=== PATIENT | female | born 1995 | race Caucasian/White ===

== ENCOUNTER 2018-11-12 19:30 | Emergency (ER) | payer OTHER, SELFPAY ==
[2018-11-12 19:31] VITALS: BP 109/60; PULSE 68; RESP 14; TEMP 36.4; O2SAT 98
--- NOTE | 2018-11-12 20:00 | ED.BACK ---
HPI - Back Pain/Injury <Elsa Patiño PA-C - Last Filed: 11/12/18 22:05> General Chief Complaint: Back Pain/Injury Stated Complaint: MID BACK PAIN Time Seen by Provider: 11/12/18 19:47 Source: patient Mode of arrival: ambulatory Limitations: no limitations History of Present Illness HPI Narrative: this 23-year-old female comes in due to approximately 3 day history of low thoracic and lumbar pain. 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 She thinks that this came on somewhat gradually. She states that pain can radiate into both legs, down the posterior legs and into the feet especially with certain movements such as twisting or lifting as well as with sitting in the car. Better being up and walking a little bit. She states that the pain has a tingling quality, but her legs are not numb or weak. She denies any groin numbness. She denies any bowel or bladder changes or any other new complaints on systems review. she states she is taking naproxen twice daily and using heat which helps somewhat. She states she has occasional back strain but this is more severe Related Data Previous Rx's Medication Instructions Recorded cephalexin 500 mg PO Q6H #28 cap 12/03/17 cyclobenzaprine 10 mg PO Q8H #15 tab 11/12/18 Allergies Allergy/AdvReac Type Severity Reaction Status Date / Time No Known Allergies Allergy Uncoded 12/27/17 12:51 Review of Systems <Elsa Patiño PA-C - Last Filed: 11/12/18 22:05> Review of Systems ROS Unobtainable: All systems reviewed & are unremarkable except as noted in HPI and below PFSH <Elsa Patiño PA-C - Last Filed: 11/12/18 22:05> Medical History Healthy female (Chronic) No pertinent family history (Chronic) Surgical History No pertinent past surgical history (Chronic) Social History Smoking Status: Never smoker Social History Smoking Status: Never smoker Exam <Elsa Patiño PA-C - Last Filed: 11/12/18 22:05> Narrative Exam Narrative: GENERAL APPEARANCE: Patient sitting comfortably, in no distress. PULMONARY: Lungs clear to auscultation bilaterally CV: Regular rhythm regular without murmur, normal S1 and S2, no S3 or S4 MUSCULOSKELETAL: No point tenderness over the thoracic or lumbar spine. mild tenderness with moving from trunk flexion to extension but able to do. Normal sit:stand and gait. Lower extremity strength 5/5 bilateral hip flexors, knee extensors, foot plantar flexion. Negative modified straight leg raise NEUROLOGIC: Bilateral patellar and Achilles DTRs 2+. lower extremity sensation grossly intact EXTREMITIES: No edema or cyanosis, no calf tenderness DERMATOLOGIC: No exanthem Initial Vital Signs Initial Vital Signs: Vital Signs Temperature 97.5 F L 11/12/18 19:31 Pulse Rate 68 11/12/18 19:31 Respiratory Rate 14 11/12/18 19:31 Blood Pressure 109/60 11/12/18 19:31 Pulse Oximetry 98 11/12/18 19:31 <DO Benji Pino Last Filed: 11/13/18 05:11> Initial Vital Signs Initial Vital Signs: Vital Signs Temperature 97.5 F L 11/12/18 19:31 Pulse Rate 68 11/12/18 19:31 Respiratory Rate 14 11/12/18 19:31 Blood Pressure 109/60 11/12/18 19:31 Pulse Oximetry 98 11/12/18 19:31 Course <JOSE Mills Last Filed: 11/12/18 22:05> Vital Signs - 8 hr 11/12/18 19:31 11/12/18 20:43 Temperature 97.5 F L Pulse Rate 68 64 Respiratory Rate 14 14 Blood Pressure 109/60 108/65 Pulse Oximetry 98 99 <DO Benji Pino Last Filed: 11/13/18 05:11> Vital Signs - 8 hr 11/12/18 19:31 11/12/18 20:43 Temperature 97.5 F L Pulse Rate 68 64 Respiratory Rate 14 14 Blood Pressure 109/60 108/65 Pulse Oximetry 98 99 MDM - Back Pain/Injury <JOSE Mills Last Filed: 11/12/18 22:05> Lab Data Point of Care Testing Test Results Negative Urine Dip Bedside Urine Glucose Negative Bedside Urine Bilirubin - Negative Bedside Urine Ketone - Negative Urine Specific [place] 1.020 Bedside Urine Occult Blood - Negative Bedside Urine pH 6.5 Bedside Urine Urobilinogen - Negative Bedside Urine Nitrite - Negative Bedside Urine Leukocytes - Negative Esterase <Hesham Quinteros DO - Last Filed: 11/13/18 05:11> Lab Data Point of Care Testing Test Results Negative Urine Dip Bedside Urine Glucose Negative Bedside Urine Bilirubin - Negative Bedside Urine Ketone - Negative Urine Specific [place] 1.020 Bedside Urine Occult Blood - Negative Bedside Urine pH 6.5 Bedside Urine Urobilinogen - Negative Bedside Urine Nitrite - Negative Bedside Urine Leukocytes - Negative Esterase Discharge Plan Departure Patient Disposition: Home Clinical Impression: Strain of lumbar region Qualifiers: Encounter type: initial encounter Qualified Code(s): S39.012A - Strain of muscle, fascia and tendon of lower back, initial encounter Sciatica Qualifiers: Laterality: bilateral Qualified Code(s): M54.31 - Sciatica, right side Discharge Date/Time: 11/12/18 20:43 Interventions: ED Discharge Assessment Last Done: 11/12/18 20:43 Instructions: DI for Back Pain With Sciatica Activity Restrictions/Additional Instructions: please increase your naproxen to 2 tablets twice daily. You can add Tylenol as well as the muscle relaxant that was prescribed for you (cyclobenzaprine ) as needed. Remember that cyclobenzaprine can make you sleepy and not to drive. Avoid sitting for long periods, lifting and twisting. Gentle walking is okay. Take a few days off of work so that you can avoid exacerbating activities. Please call your insurance 1st thing in the morning and request a referral to a primary care provider who can see you for follow-up. You may need further testing and treatment if you are not getting better. You should return to the ED as we talked about if you have any acutely worsening symptoms such as more severe pain, weakness in your extremities, or bowel or bladder changes Prescriptions: New cyclobenzaprine 10 mg tablet 10 mg PO Q8H Qty: 15 RF: 0 No Action cephalexin 500 MG capsule 500 mg PO Q6H Qty: 28 RF: 0 <Hesham Quinteros DO - Last Filed: 11/13/18 05:11> Cosign ED Attending Fide Attestation: I was immediately available in the department for consultation. Documentation has been reviewed. I agree with assessment and plan.
[2018-11-12 20:43] VITALS: BP 108/65; PULSE 64; RESP 14; O2SAT 99
== END 2018-11-12 20:43 | disposition home or self-care (01) ==
PROVIDERS: Emergency Provider Internal Medicine
DX: S39.012A Strain of muscle, fascia and tendon of lower back, initial encounter (principal); M54.31 Sciatica, right side
CPT/HCPCS: 81003; 81025; 99282; 99283

== ENCOUNTER 2019-03-09 08:49 | Emergency (ER) | payer OTHER, SELFPAY ==
[2019-03-09 08:55] VITALS: BP 124/81; PULSE 60; RESP 14; TEMP 36.7; O2SAT 99; BMI 24.7
--- NOTE | 2019-03-09 09:23 | DI.US.S_ITS ---
PROCEDURE: US PELVIC COMPLETE INDICATIONS: LEFT LOWER QUADRANT PAIN TECHNIQUE: Real-time scanning was performed of the pelvic organs, with image documentation. Additional endovaginal scanning was necessary due to incomplete visualization of the adnexal and endometrial structures by transabdominal scanning. COMPARISON: None. FINDINGS: Transabdominal scanning: Limited scanning through the kidneys shows no hydronephrosis. No pathologic free abdominal or pelvic fluid. Endovaginal scanning: Uterus: Uterus is normal in size at 8.5 x 4.3 x 5.1 cm. The endometrium measures 13 mm in combined thickness. Ovaries: Complex nonvascular cyst within the left ovary measuring 48 mm. IMPRESSION: 1. Complex left ovarian cyst. Followup ultrasound in 5 weeks is recommended to ensure resolution, and to exclude underlying malignancy. Dictated by: Puma Chaney M.D. on 03/09/2019 at 9:29 Approved by: Puma Chaney M.D. on 03/09/2019 at 9:30
[2019-03-09] MEDS: KETOROLAC 60 MG/2 ML VIAL 30 MG IM (09:27)
--- NOTE | 2019-03-09 09:33 | ED_ITS ---
HPI - Female Genitourinary General Chief complaint: Urogenital-Female Stated complaint: LOWER LEFT ABD PAIN Time Seen by Provider: 03/09/19 08:54 Source: patient Mode of arrival: ambulatory Limitations: no limitations History of Present Illness HPI Narrative: Patient is a 24-year-old female left lower quadrant pain. She has a history of ovarian cysts she is unsure this might be 1. She had quite a bit a bad cramping and pain last night. She took Tylenol last evening 2 500 mg tablets however no relief. She denies any fever nausea. She has no vaginal discharge no vaginal bleeding. MD Complaint: pelvic pain Quality: Aching and Cramping Duration: constant Related Data Previous Rx's Medication Instructions Recorded cephalexin 500 mg PO Q6H #28 cap 12/03/17 cyclobenzaprine 10 mg PO Q8H #15 tab 11/12/18 Allergies Allergy/AdvReac Type Severity Reaction Status Date / Time No Known Drug Allergies Allergy Verified 03/09/19 08:59 Review of Systems Review of Systems GENERAL: Denies chills, fatigue, malaise, fever, sweats, travel HEENT: Denies sinus pain, ear pain, sore throat, difficulty swallowing, neck pain RESPIRATORY: Denies dyspnea, cough, wheezing, hemoptysis, sputum. CARDIOVASCULAR: Denies chest pain, palpitations, orthopnea, edema GASTROINTESTINAL: Denies nausea, vomiting, abdominal pain, diarrhea, constipation, melena. : See HPI MUSCULOSKELETAL: Denies weakness, joint pain, or bony pain SKIN: No rash, no erythema, no pruritus NEUROLOGIC: Denies weakness, dizziness, headache, numbness, change in speech, confusion PSYCHIATRIC: No concerning psychosocial issues. 12 point review of systems is negative except for those stated above and HPI PFSH Medical History Healthy female (Chronic) No pertinent family history (Chronic) Surgical History No pertinent past surgical history (Chronic) Social History Smoking Status: Never smoker Social History Smoking Status: Never smoker Exam Initial Vital Signs Initial Vital Signs: Vital Signs Temperature 98.1 F 06/22/19 08:55 Pulse Rate 60 03/09/19 08:55 Respiratory Rate 14 03/09/19 08:55 Blood Pressure 124/81 03/09/19 08:55 Pulse Oximetry 99 03/09/19 08:55 GENERAL: Well-appearing, well-nourished and in no acute distress. HEENT: Head atraumatic,EOMI, pupils reactive, face symmetric, moist mucous membranes CARDIOVASCULAR: Regular rate and rhythm without murmurs, rubs or gallops. RESPIRATORY: Breath sounds equal bilaterally, no wheezes rales or rhonchi. ABDOMEN: Soft, nontender left lower quadrant no guarding no rebound no right upper quadrant pain some minimal right lower quadrant pain : No CVA tenderness EXTREMITIES: Normal range of motion, no clubbing or edema. Neurovascularly intact NEUROLOGICAL: Alert and oriented x4.Normal gait and speech. Cranial nerves II through XII grossly intact. SKIN: Warm, dry, no laceration, no petechiae, no rashes or lesions. Course Orders Ordered: ED Orders 03/09/19 09:23 US pelvic complete Stat 03/09/19 09:30 Complete Blood Count AUTO DIFF Stat Comprehensive Metabolic Panel Stat Lipase Stat Discontinued Medications Ketorolac Tromethamine (Toradol) 30 mg IM NOW ONE Stop: 03/09/19 09:24 Last Admin: 03/09/19 09:27 Dose: 30 mg Vital Signs - 8 hr 03/09/19 08:55 Temperature 98.1 F Pulse Rate 60 Respiratory Rate 14 Blood Pressure 124/81 Pulse Oximetry 99 MDM - Female Genitourinary Lab Data Attestation: I reviewed the patient's lab results. Result diagrams: 03/09/19 09:30 03/09/19 09:30 Lab Results 03/09/19 03/09/19 Range/Units 09:30 09:30 WBC 6.4 (4.5-11.0) X10^3/uL RBC 4.63 (4.0-5.2) X10^6/uL Hgb 13.5 (12.0-16.0) g/dL Hct 40.6 (36-46) % MCV 87.6 (80-100) fL MCH 29.2 (26-34) PG MCHC 33.4 (30-36) % RDW 13.2 (11.6-14.8) % Plt Count 253 (150-400) X10^3/uL Neut % (Auto) 68.8 (50-75) % Lymph % (Auto) 24.3 L (25-40) % [place] % (Auto) 6.2 (3-14) % Eos % (Auto) 0.4 L (2-4) % Baso % (Auto) 0.3 (0-2) % Neut # (Auto) 4400 (4067-7244) /uL Lymph # (Auto) 1600 (8626-5853) /uL [place] # (Auto) 400 (0-900) /uL Eos # (Auto) 0 (0-450) /uL Baso # (Auto) 0 (0-100) /uL Sodium 140 (137-145) mmol/L Potassium 4.2 (3.4-5.1) mmol/L Chloride 104 (98-107) mmol/L Carbon Dioxide 26 (22-32) mmol/L BUN 17 (7-17) mg/dL Creatinine 0.70 (0.52-1.04) mg/dL Estimated GFR > 60.0 (>60) mL/min BUN/Creatinine Ratio 24.3 H (6-22) Glucose 90 (70-100) mg/dL Calcium 10.0 (8.4-10.2) mg/dL Total Bilirubin 0.6 (0.2-1.3) mg/dL AST 32 (14-36) IU/L ALT 28 (9-52) IU/L Alkaline Phosphatase 45 (38-126) U/L Total Protein 7.4 (6.3-8.2) g/dL Albumin 4.6 (3.5-5.0) g/dL Globulin 2.8 (1.7-4.1) g/dL Albumin/Globulin Ratio 1.6 (1.0-2.8) Lipase 83 (23-300) U/L Point of Care Testing Test Results Negative Urine Dip Bedside Urine Glucose Negative Bedside Urine Bilirubin - Negative Bedside Urine Ketone + 15 Urine Specific [place] 1.015 Bedside Urine Occult Blood - Negative Bedside Urine pH 6.0 Bedside Urine Protein - Negative Bedside Urine Urobilinogen - Negative Bedside Urine Nitrite - Negative Bedside Urine Leukocytes - Negative Esterase Imaging Data pelvic ultrasound: Radiologist's impression: PROCEDURE: US PELVIC COMPLETE INDICATIONS: LEFT LOWER QUADRANT PAIN TECHNIQUE: Real-time scanning was performed of the pelvic organs, with image documentation. Additional endovaginal scanning was necessary due to incomplete visualization of the adnexal and endometrial structures by transabdominal scanning. COMPARISON: None. FINDINGS: Transabdominal scanning: Limited scanning through the kidneys shows no hydronephrosis. No pathologic free abdominal or pelvic fluid. Endovaginal scanning: Uterus: Uterus is normal in size at 8.5 x 4.3 x 5.1 cm. The endometrium measures 13 mm in combined thickness. Ovaries: Complex nonvascular cyst within the left ovary measuring 48 mm. IMPRESSION: 1. Complex left ovarian cyst. Followup ultrasound in 5 weeks is recommended to ensure resolution, and to exclude underlying malignancy. Dictated by: Puma Chaney M.D. on 03/09/2019 at 9:29 Discharge Plan Departure Patient Disposition: Home Clinical Impression: Ovarian cyst Qualifiers: Laterality: left Qualified Code(s): N83.202 - Unspecified ovarian cyst, left side Instructions: Ovarian Cyst Activity Restrictions/Additional Instructions: *You have been diagnosed with ovarian cyst *What to do: You should have repeat ultrasound in 5-6 weeks to show resolution of cyst. This should resolve on its own. Recommend you continue warm compr esses *Continue to take medications as directed -ibuprofen 800 mg every 8 hours if needed for pain with food Tylenol 650 mg every 4-6 hours if needed for pain *Follow up with your primary care provider in 2-3 days *Return to ER if you should have increasing pain significant vaginal bleeding or any new, worsening or concerning symptoms Prescriptions: No Action cephalexin 500 MG capsule 500 mg PO Q6H Qty: 28 RF: 0 cyclobenzaprine 10 mg tablet 10 mg PO Q8H Qty: 15 RF: 0 Referrals: Cara Arias PA-C [Non-Staff] -
[2019-03-09 09:38] LABS: Add Manual Diff / Slide Review NO; Basophils Absolute Auto 0 /uL (0-100); Basophils Percent Auto 0.3 % (0-2); Eosinophils Absolute Auto 0 /uL (0-450); Eosinophils Percent Auto 0.4 % (2-4); Hematocrit 40.6 % (36-46); Hemoglobin 13.5 g/dL (12.0-16.0); Lymphocytes Absolute Auto 1600 /uL (1100-4500); Lymphocytes Percent Auto 24.3 % (25-40); Mean Corpuscular HGB Conc 33.4 % (30-36); Mean Corpuscular Hemoglobin 29.2 PG (26-34); Mean Corpuscular Volume 87.6 fL (80-100); Monocytes Absolute Auto 400 /uL (0-900); Monocytes Percent Auto 6.2 % (3-14); Neutrophils Absolute Auto 4400 /uL (1500-7000); Neutrophils Percent Auto 68.8 % (50-75); Platelet Count 253 X10^3/uL (150-400); Red Blood Cell Count 4.63 X10^6/uL (4.0-5.2); Red Cell Distribution Width 13.2 % (11.6-14.8); White Blood Cell Count 6.4 X10^3/uL (4.5-11.0)
[2019-03-09 09:55] LABS: Alanine Aminotransferase 28 IU/L (9-52); Albumin 4.6 g/dL (3.5-5.0); Albumin Globulin Ratio 1.6 (1.0-2.8); Alkaline Phosphatase 45 U/L (38-126); Aspartate Aminotransferase 32 IU/L (14-36); BUN Creatinine Ratio 24.3 (6-22); Bilirubin Total 0.6 mg/dL (0.2-1.3); Blood Urea Nitrogen 17 mg/dL (7-17); Carbon Dioxide 26 mmol/L (22-32); Chloride 104 mmol/L (98-107); Estimated Glomerular Filt Rate > 60.0 mL/min (>60); Globulin 2.8 g/dL (1.7-4.1); Glucose 90 mg/dL (70-100); HEMOLYSIS 18 (0-50); Lipase 83 U/L (23-300); Potassium 4.2 mmol/L (3.4-5.1); Sodium 140 mmol/L (137-145); Total Protein 7.4 g/dL (6.3-8.2)
[2019-03-09 10:47] VITALS: BP 117/70; PULSE 56; O2SAT 98
== END 2019-03-09 10:48 | disposition home or self-care (01) ==
PROVIDERS: Emergency Provider Emergency Medicine
DX: N83.202 Unspecified ovarian cyst, left side (principal)
CPT/HCPCS: 36415; 76830; 76856; 80053; 81003; 81025; 83690; 85025; 96372; 99283; 99284; J1885

== ENCOUNTER 2019-07-04 19:21 | Emergency (ER) | payer OTHER, SELFPAY ==
[2019-07-04 19:29] VITALS: BP 108/53; PULSE 70; RESP 18; TEMP 36.6; O2SAT 98
--- NOTE | 2019-07-04 19:32 | DI.RAD.S_ITS ---
PROCEDURE: XR WRIST RT MIN 3V INDICATIONS: pain after twisting it. TECHNIQUE: 4 views of the wrist were acquired. COMPARISON: None. FINDINGS: Bones: No fractures or dislocations. No suspicious bony lesions. Scaphoid view: The scaphoid is intact. Soft tissues: No suspicious soft tissue calcifications. IMPRESSION: No acute radiographic findings. If pain persists, repeat study in 5-7 days is recommended to exclude occult fracture. Dictated by: Elina Rondon M.D. on 07/04/2019 at 20:28 Approved by: Elina Rondon M.D. on 07/04/2019 at 20:29
[2019-07-04] MEDS: IBUPROFEN 400 MG TABLET 800 MG PO (19:38)
[2019-07-04 19:40] VITALS: PULSE 78
--- NOTE | 2019-07-04 19:54 | ED.UPPEXIN ---
HPI - Extremity Injury (Upper) <Elas Patiño PA-C - Last Filed: 07/04/19 21:08> General Chief Complaint: Extremity Injury, Upper Stated Complaint: right wrist injury at work on the 15th Time Seen by Provider: 07/04/19 19:25 Mode of arrival: Ambulatory Limitations: no limitations History of Present Illness HPI narrative: This 24-year-old female comes in this evening due to right wrist injury at work 2 days ago. She is right-handed. She went to the clinic her employer is contracted with for L&I yesterday, told to return this morning and then told could not be seen there, so comes to ED. 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 She felt a pop and had pain right away. She has had persistent pain with movement since then. She has not taken any medications, but her mom gave her a wrist splint yesterday and she wore this last night, seems to help. She denies any pain in the hand, elbow or other areas. She denies any weakness or paresthesia and states it is pain that keeps her from moving. She denies any possibility of . Denies any other complaints or injuries on systems review Related Data Previous Rx's Medication Instructions Recorded cephalexin 500 mg PO Q6H #28 cap 12/03/17 cyclobenzaprine 10 mg PO Q8H #15 tab 11/12/18 Allergies Allergy/AdvReac Type Severity Reaction Status Date / Time No Known Drug Allergies Allergy Verified 03/09/19 08:59 Review of Systems <Elsa Patiño PA-C - Last Filed: 07/04/19 21:08> Review of Systems ROS Unobtainable: All systems reviewed & are unremarkable except as noted in HPI and below Patient History <Elsa Patiño PA-C - Last Filed: 07/04/19 21:08> Medical History Healthy female (Chronic) No pertinent family history (Chronic) Surgical History No pertinent past surgical history (Chronic) Social History Smoking Status: Never smoker Social History Smoking Status: Never smoker alcohol intake frequency: holidays/special occasions only Substance Use Type: marijuana Exam <Elsa Patiño PA-C - Last Filed: 07/04/19 21:08> Narrative Exam Narrative: GENERAL APPEARANCE: Patient sitting comfortably, in no distress. LUNGS: Clear to auscultation bilaterally. HEART: Rate and rhythm regular without murmur, normal S1 and S2, no S3 or S4. MUSCULOSKELETAL: Right wrist mild effusion. Does not extend to the hand or proximally. Tender over the mid to lateral wrist on the posterior surface. No tenderness over the forearm, elbow, metacarpals or fingers. Full range of motion of the fingers with wrist neutral. Limited range of motion of the wrist, especially flexion and deviations secondary to tenderness NEUROVASCULAR: Right hand is warm and pink, pulses are intact, sensation grossly intact Initial Vital Signs Initial Vital Signs: Vital Signs Temperature 98 F 07/04/19 19:29 Pulse Rate 70 07/04/19 19:29 Respiratory Rate 18 07/04/19 19:29 Blood Pressure 108/53 L 07/04/19 19:29 Pulse Oximetry 98 07/04/19 19:29 <Hesham Quinteros DO - Last Filed: 07/04/19 23:27> Initial Vital Signs Initial Vital Signs: Vital Signs Temperature 98 F 07/04/19 19:29 Pulse Rate 70 07/04/19 19:29 Respiratory Rate 18 07/04/19 19:29 Blood Pressure 108/53 L 07/04/19 19:29 Pulse Oximetry 98 07/04/19 19:29 Course <Elsa Patiño PA-C - Last Filed: 07/04/19 21:08> Course Additional Information: Patient will call an L&I for referral to outside provider if employer not able to help with this. Form 1047M completed in addition to L & I standard paperwork prior to patient departure. Orders Ordered: ED Orders 07/04/19 19:32 XR wrist RT min 3V Stat Discontinued Medications Ibuprofen (Advil) 800 mg PO NOW ONE Stop: 07/04/19 19:37 Last Admin: 07/04/19 19:38 Dose: 800 mg Documented by: PHILLIP Vital Signs Vital signs: Vital Signs - 8 hr 07/04/19 19:29 07/04/19 19:40 07/04/19 20:52 Temperature 98 F Pulse Rate 70 50 L Pulse Rate [Right Radial] 78 Respiratory Rate 18 15 Blood Pressure 108/53 L 104/63 Pulse Oximetry 98 99 <Hesham Quinteros, DO - Last Filed: 07/04/19 23:27> Orders Ordered: ED Orders 07/04/19 19:32 XR wrist RT min 3V Stat Discontinued Medications Ibuprofen (Advil) 800 mg PO NOW ONE Stop: 07/04/19 19:37 Last Admin: 07/04/19 19:38 Dose: 800 mg Documented by: PHILLIP Vital Signs Vital signs: Vital Signs - 8 hr 07/04/19 19:29 07/04/19 19:40 07/04/19 20:52 Temperature 98 F Pulse Rate 70 50 L Pulse Rate [Right Radial] 78 Respiratory Rate 18 15 Blood Pressure 108/53 L 104/63 Pulse Oximetry 98 99 Discharge Plan Departure Patient Disposition: Home Clinical Impression: Sprain and strain of wrist Discharge Date/Time: 07/04/19 20:52 Instructions: DI for Wrist Sprain Activity Restrictions/Additional Instructions: There was no broken bone found on your x-ray, and I believe that your pain is due to tendon strain and muscle sprain of the wrist. Please continue wearing or wrist splint /. Take 600 mg ibuprofen every 6-8 hours to help with pain and inflammation. Please set up follow-up with an L&I provider to recheck next week as repeat x-ray may be needed if you are not starting to get better. For now, you need to work on light duty according to the restrictions that we talked about. I have given you a copy of the form for this if needed for your employer. You can determine whether you can get back to regular duty at your follow-up, or whether you need further treatment such physical therapy or referral. Please return if you have any acutely worsening symptoms in the interim Prescriptions: No Action cephalexin 500 MG capsule 500 mg PO Q6H Qty: 28 RF: 0 cyclobenzaprine 10 mg tablet 10 mg PO Q8H Qty: 15 RF: 0 Referrals: Cara Arias PA-C [Non-Staff] -
[2019-07-04 20:52] VITALS: BP 104/63; PULSE 50; RESP 15; O2SAT 99
== END 2019-07-04 20:52 | disposition home or self-care (01) ==
PROVIDERS: Emergency Provider Internal Medicine
DX: S63.501A Unspecified sprain of right wrist, initial encounter (principal); S66.911A Strain of unspecified muscle, fascia and tendon at wrist and hand level, right hand, initial encounter; Y99.0 Civilian activity done for income or pay
CPT/HCPCS: 73110; 99282; 99283

== ENCOUNTER 2020-03-11 18:48 | Emergency (ER) | payer OTHER, SELFPAY ==
[2020-03-11 18:54] VITALS: BP 131/94; PULSE 80; RESP 18; TEMP 36.4; O2SAT 99
--- NOTE | 2020-03-11 19:33 | DI.RAD.S_ITS ---
PROCEDURE: XR CHEST 1V INDICATIONS: Cough/shortness of breath TECHNIQUE: One view of the chest was acquired. COMPARISON: None. FINDINGS: Surgical changes and devices: None. Lungs and pleura: Lungs are clear. No pleural effusions or pneumothorax. Mediastinum: Mediastinal contours appear normal. Heart size is normal. Bones and chest wall: No suspicious bony lesions. Overlying soft tissues appear unremarkable. IMPRESSION: No evidence acute pulmonary process. Dictated by: Vishal Wilkinson M.D. on 03/11/2020 at 20:12 Approved by: Vishal Wilkinson M.D. on 03/11/2020 at 20:12
[2020-03-11 20:13] LABS: Add Manual Diff / Slide Review NO; Basophils Absolute Auto 0 /uL (0-100); Basophils Percent Auto 0.6 % (0-2); Eosinophils Absolute Auto 100 /uL (0-450); Eosinophils Percent Auto 1.1 % (2-4); Hematocrit 44.1 % (36-46); Hemoglobin 14.9 g/dL (12.0-16.0); Lymphocytes Absolute Auto 2800 /uL (1100-4500); Lymphocytes Percent Auto 43.7 % (25-40); Mean Corpuscular HGB Conc 33.8 % (30-36); Monocytes Absolute Auto 400 /uL (0-900); Monocytes Percent Auto 6.7 % (3-14); Neutrophils Absolute Auto 3100 /uL (1500-7000); Neutrophils Percent Auto 47.9 % (50-75); Platelet Count 305 X10^3/uL (150-400); Red Blood Cell Count 4.95 X10^6/uL (4.0-5.2); Red Cell Distribution Width 13.5 % (11.6-14.8); White Blood Cell Count 6.5 X10^3/uL (4.5-11.0)
[2020-03-11 20:29] LABS: Alanine Aminotransferase 13 IU/L (<35); Albumin 4.8 g/dL (3.5-5.0); Albumin Globulin Ratio 1.6 (1.0-2.8); Alkaline Phosphatase 51 U/L (38-126); Aspartate Aminotransferase 34 IU/L (14-36); BUN Creatinine Ratio 16.4 (6-22); Bilirubin Total 0.4 mg/dL (0.2-1.3); Blood Urea Nitrogen 11 mg/dL (7-17); Calcium 9.3 mg/dL (8.4-10.2); Carbon Dioxide 30 mmol/L (22-32); Chloride 106 mmol/L (98-107); Estimated Glomerular Filt Rate > 60.0 mL/min (>60); Glucose 91 mg/dL (70-100); HEMOLYSIS 24 (0-50); Lipase 191 U/L (23-300); Potassium 4.3 mmol/L (3.4-5.1); Sodium 142 mmol/L (137-145); Total Protein 7.8 g/dL (6.3-8.2)
--- NOTE | 2020-03-11 20:42 | ED.GENADULT ---
HPI - General Adult General Chief complaint: Abdominal Pain Stated complaint: LUQ pain, cough, chills, runny nose Time Seen by Provider: 03/11/20 19:33 Source: patient Mode of arrival: Ambulatory Limitations: no limitations History of Present Illness HPI narrative: 25-year-old female here for evaluation of left upper quadrant/left side pain for the past week. She also has had a couple days of diarrhea. No urinary symptoms. No vomiting. No prior abdominal surgeries. Also complaining of chills and a cough and runny nose. Has not tried anything for symptoms prior to arrival. Related Data Previous Rx's Medication Instructions Recorded cephalexin 500 mg PO Q6H #28 cap 12/03/17 cyclobenzaprine 10 mg PO Q8H #15 tab 11/12/18 ondansetron 4 mg PO Q6H PRN #14 tab 03/11/20 Allergies Allergy/AdvReac Type Severity Reaction Status Date / Time No Known Drug Allergies Allergy Verified 03/09/19 08:59 Review of Systems Constitutional Constitutional: Reports chills and Denies fever(s) ENT Ears, Nose, Mouth, and Throat: Denies sinus pain Comments: Runny nose Cardiovascular Cardiovascular: Denies chest pain Respiratory Respiratory: Reports cough Gastrointestinal Gastrointestinal: Reports abdominal pain, Denies change in bowel habits, Reports diarrhea and Denies nausea Genitourinary Genitourinary: Denies dysuria Genitourinary: Denies dysuria Musculoskeletal Musculoskeletal: Denies arthralgias and Denies myalgias Integumentary/Breasts Skin/Breast: Denies rash Neurologic Neurologic: Denies behavioral changes Psychiatric Psychiatric: Denies behavioral changes Patient History Medical History Healthy female (Chronic) No pertinent family history (Chronic) Surgical History No pertinent past surgical history (Chronic) Social History Smoking Status: Current some day smoker Smoking Status: Current some day smoker tobacco type: vaping alcohol intake frequency: holidays/special occasions only Substance Use Type: marijuana Exam Initial Vital Signs Initial Vital Signs: Vital Signs Temperature 97.5 F L 03/11/20 18:54 Pulse Rate 80 03/11/20 18:54 Respiratory Rate 18 03/11/20 18:54 Blood Pressure 131/94 H 03/11/20 18:54 Pulse Oximetry 99 03/11/20 18:54 Const General: cooperative and comfortable Limitations: mental status not altered HENMT Head: normal to inspection and normocephalic Resp Effort & Inspection: normal respiratory effort Auscultation: clear to auscultation bilaterally Cardio Rate: regular rate Rhythm: regular rhythm GI Inspection: non-distended Palpation: soft, No firm and tender (Left upper quadrant without rebound or guarding) Back/Spine/Pelvis Back: No CVA tenderness Skin Lesions: no lesions Rashes: no rashes Neuro General: patient alert, patient awake and patient oriented x3 Cognition: normal cognition Speech: speech normal Gait: normal gait Sensory Exam: no sensory deficits noted Extrem General: normal to inspection and capillary refill normal Psych Appearance: grossly normal and well kempt Scores GCS [place] coma scale eye opening: Spontaneous Awa coma scale verbal response: Orientated Awa coma scale motor response: Obey commands Awa coma scale total score: 15 Course Orders Ordered: ED Orders 03/11/20 19:33 XR chest 1V Stat 03/11/20 20:05 Complete Blood Count AUTO DIFF Stat Comprehensive Metabolic Panel Stat Lipase Stat Vital Signs Vital signs: Vital Signs - 8 hr 03/11/20 18:54 03/11/20 21:14 Temperature 97.5 F L Pulse Rate 80 60 Respiratory Rate 18 18 Blood Pressure 131/94 H 129/78 Pulse Oximetry 99 99 Medical Decision Making Lab Data Lab results reviewed: Yes I reviewed the patient's lab results. Result diagrams: 03/11/20 20:05 03/11/20 20:05 Labs: Lab Results 03/11/20 03/11/20 Range/Units 20:05 20:05 WBC 6.5 (4.5-11.0) X10^3/uL RBC 4.95 (4.0-5.2) X10^6/uL Hgb 14.9 (12.0-16.0) g/dL Hct 44.1 (36-46) % MCV 89.0 (80-100) fL MCH 30.0 (26-34) PG MCHC 33.8 (30-36) % RDW 13.5 (11.6-14.8) % Plt Count 305 (150-400) X10^3/uL Neut % (Auto) 47.9 L (50-75) % Lymph % (Auto) 43.7 H (25-40) % [place] % (Auto) 6.7 (3-14) % Eos % (Auto) 1.1 L (2-4) % Baso % (Auto) 0.6 (0-2) % Neut # (Auto) 3100 (3567-2702) /uL Lymph # (Auto) 2800 (0000-5422) /uL [place] # (Auto) 400 (0-900) /uL Eos # (Auto) 100 (0-450) /uL Baso # (Auto) 0 (0-100) /uL Sodium 142 (137-145) mmol/L Potassium 4.3 (3.4-5.1) mmol/L Chloride 106 (98-107) mmol/L Carbon Dioxide 30 (22-32) mmol/L BUN 11 (7-17) mg/dL Creatinine 0.67 (0.52-1.04) mg/dL Estimated GFR > 60.0 (>60) mL/min BUN/Creatinine Ratio 16.4 (6-22) Glucose 91 (70-100) mg/dL Calcium 9.3 (8.4-10.2) mg/dL Total Bilirubin 0.4 (0.2-1.3) mg/dL AST 34 (14-36) IU/L ALT 13 (<35) IU/L Alkaline Phosphatase 51 (38-126) U/L Total Protein 7.8 (6.3-8.2) g/dL Albumin 4.8 (3.5-5.0) g/dL Globulin 3.0 (1.7-4.1) g/dL Albumin/Globulin Ratio 1.6 (1.0-2.8) Lipase 191 (23-300) U/L Point of Care Testing Test Results Negative Urine Dip Bedside Urine Glucose Negative Bedside Urine Bilirubin - Negative Bedside Urine Ketone - Negative Urine Specific [place] 1.010 Bedside Urine Occult Blood +/- Bedside Urine pH 8.5 Bedside Urine Protein +/- 15 Bedside Urine Urobilinogen - Negative Bedside Urine Nitrite - Negative Bedside Urine Leukocytes - Negative Esterase Point of care testing: Point of Care Testing Test Results Negative Urine Dip Bedside Urine Glucose Negative Bedside Urine Bilirubin - Negative Bedside Urine Ketone - Negative Urine Specific [place] 1.010 Bedside Urine Occult Blood +/- Bedside Urine pH 8.5 Bedside Urine Protein +/- 15 Bedside Urine Urobilinogen - Negative Bedside Urine Nitrite - Negative Bedside Urine Leukocytes - Negative Esterase Imaging Data Chest x-ray: Radiologist's Impression: [address] [address] XRay Report Signed Patient: Aretha Goins#: [id number] : 1995Acct:[id number] Age/Sex: 25 / FDate of Service: 03/11/20 Loc: ED Accession Number: [id number] Procedure: XR chest 1V Ordering Provider: Adán Davis D.O. PROCEDURE: XR CHEST 1V INDICATIONS: Cough/shortness of breath TECHNIQUE: One view of the chest was acquired. COMPARISON: None. FINDINGS: Surgical changes and devices: None. Lungs and pleura: Lungs are clear. No pleural effusions or pneumothorax. Mediastinum: Mediastinal contours appear normal. Heart size is normal. Bones and chest wall: No suspicious bony lesions. Overlying soft tissues appear unremarkable. IMPRESSION: No evidence acute pulmonary process. Dictated by: Vishal Wilkinson M.D. on 03/11/2020 at 20:12 Approved by: Vishal Wilkinson M.D. on 03/11/2020 at 20:12 [facility] Narrative Medical decision making narrative: Patient has a benign abdominal exam. Labs unremarkable. Chest x-ray is unremarkable. COVID-19 test obtained patient was given care instructions and return precautions. Feel we can hold on further workup to include a CT scan for now. Low suspicion for intra-abdominal surgical pathology. Patient was given return precautions and follow-up instructions. He expressed understanding and agreement. Discharge Plan Departure Patient Disposition: Home Clinical Impression: Abdominal pain Qualifiers: Abdominal location: left upper quadrant Qualified Code(s): R10.12 - Left upper quadrant pain Discharge Date/Time: 03/11/20 21:15 Instructions: DI for Abdominal Pain-Adult Activity Restrictions/Additional Instructions: Use the nausea medicine as needed. Contact your primary provider for follow-up. Return to the emergency department for any new or worsening symptoms Prescriptions: New ondansetron 4 mg tablet,disintegrating 4 mg PO Q6H PRN (Reason: nausea and vomiting) Qty: 14 RF: 0 No Action cephalexin 500 MG capsule 500 mg PO Q6H Qty: 28 RF: 0 cyclobenzaprine 10 mg tablet 10 mg PO Q8H Qty: 15 RF: 0
[2020-03-11 21:14] VITALS: BP 129/78; PULSE 60; RESP 18; O2SAT 99
[2020-03-13 10:09] LABS: COVID19 Sendout Not Detected (Not Detected)
== END 2020-03-11 21:15 | disposition home or self-care (01) ==
PROVIDERS: Emergency Provider Emergency Medicine
DX: R10.12 Left upper quadrant pain (principal); R05 Cough; R06.02 Shortness of breath; R19.7 Diarrhea, unspecified
CPT/HCPCS: 36415; 71045; 80053; 81003; 81025; 83690; 85025; 87635; 99284

== ENCOUNTER 2020-10-03 13:30 | Emergency (ER) | payer OTHER, SELFPAY ==
[2020-10-03 13:54] VITALS: BP 138/78; PULSE 66; RESP 16; TEMP 36.1; O2SAT 97; BMI 21.6
[2020-10-03 14:11] LABS: COVID19 -Nasal RAPID Negative (Negative)
--- NOTE | 2020-10-03 14:26 | ED.ABDPAIN ---
HPI - Abdominal Pain General Chief Complaint: Abdominal Pain Stated Complaint: COVID SYMPTOMS started 2 weeks ago Time Seen by Provider: 10/03/20 14:20 History of Present Illness HPI narrative: 25-year-old woman with no significant medical problems recently for chlamydia and bacterial vaginosis with 2 different antibiotics. She has had subsequent nausea vomiting and diarrhea for 5 days. She notices increasing abdominal pain in general area of her ascending and transverse colon. She notes that any time she is eating she is vomiting and has had foamy stool that is quite odoriferous. She had a low-grade fever last night. There is no cough, chest pain, dyspnea, lower extremity edema. Related Data Previous Rx's Medication Instructions Recorded cephalexin 500 mg PO Q6H #28 cap 12/03/17 cyclobenzaprine 10 mg PO Q8H #15 tab 11/12/18 ondansetron 4 mg PO Q6H PRN #14 tab 03/11/20 ondansetron 4 mg PO Q6H PRN #14 tab 10/03/20 Allergies Allergy/AdvReac Type Severity Reaction Status Date / Time No Known Drug Allergies Allergy Verified 03/09/19 08:59 Review of Systems Review of Systems Narrative: Remainder of review of systems including constitutional, ENT, cardiovascular, respiratory, GI, , musculoskeletal, skin, neurologic and psychiatric systems reviewed and are unremarkable except as noted in HPI. Patient History Medical History (Updated 10/03/20 @ 19:25 by Hesham Quinteros DO) Healthy female No pertinent family history Surgical History No pertinent past surgical history Social History Smoking Status: Current some day smoker Smoking Status: Current some day smoker tobacco type: vaping alcohol intake frequency: holidays/special occasions only Substance Use Type: marijuana Exam Narrative Exam Narrative: General: Healthy appearing, in no acute distress. Able to give a complete and coherent history. Well-nourished well-developed HEENT: Dry mucous membranes, normal sclera with reactive pupils, Respiratory: Lungs are clear to auscultation, no wheezing no rales no rhonchi. Full and symmetrical air movement Cardiac: Regular rate and rhythm no murmurs no bruits Abdomen: Soft, mild tenderness along the right side and upper abdomen without rebound or guarding, hyperactive bowel tones, no flank pain. Skin: Warm and dry, no rashes Neurologic: Grossly neurologically intact with no obvious asymmetries or abnormalities Extremities: No trauma, well perfused Psych: Cooperative, appropriate insight and affect Initial Vital Signs Initial Vital Signs: Vital Signs Temperature 97.0 F L 10/03/20 13:54 Pulse Rate 66 10/03/20 13:54 Respiratory Rate 16 10/03/20 13:54 Blood Pressure 138/78 10/03/20 13:54 Pulse Oximetry 97 10/03/20 13:54 Course Orders Ordered: Discontinued Medications Fluconazole (Fluconazole 150 Mg Tablet) 150 mg PO NOW ONE Stop: 10/03/20 15:23 Last Admin: 10/03/20 15:34 Dose: 150 mg Documented by: PAULETTE Sodium Chloride (Normal Saline 0.9%) 1,000 mls @ 1,000 mls/hr IV BOLUS ONE Stop: 10/03/20 16:21 Last Infusion: 10/03/20 17:02 Dose: 0 mls/hr Documented by: Admin: 10/03/20 15:34 Dose: 1,000 mls/hr Documented by: PAULETTE Ondansetron HCl (Ondansetron 4 Mg/2 Ml Inj) 4 mg IV NOW ONE Stop: 10/03/20 15:23 Last Admin: 10/03/20 15:33 Dose: 4 mg Documented by: PAULETTE Pantoprazole Sodium (Pantoprazole 40 Mg Vial) 40 mg IV NOW ONE Stop: 10/03/20 15:29 Last Admin: 10/03/20 15:34 Dose: 40 mg Documented by: PAULETTE Prochlorperazine (Prochlorperazine 10 Mg/2 Ml Vial) 10 mg IV NOW ONE Stop: 10/03/20 17:09 Last Admin: 10/03/20 17:16 Dose: 10 mg Documented by: PAULETTE Vital Signs Vital signs: Vital Signs - 8 hr 10/03/20 13:54 Temperature 97.0 F L Pulse Rate 66 Respiratory Rate 16 Blood Pressure 138/78 Pulse Oximetry 97 MDM - Abdominal Pain Medical Records Attestation: I reviewed the patient's medical records. Lab Data Attestation: I reviewed the patient's lab results. Result diagrams: 10/03/20 14:45 10/03/20 15:15 Labs: Lab Results 10/03/20 10/03/20 10/03/20 Range/Units 13:51 14:40 14:45 WBC 5.7 (4.5-11.0) X10^3/uL RBC 4.94 (4.0-5.2) X10^6/uL Hgb 15.0 (12.0-16.0) g/dL Hct 44.4 (36-46) % MCV 89.8 (80-100) fL MCH 30.4 (26-34) PG MCHC 33.8 (30-36) % RDW 12.7 (11.6-14.8) % Plt Count 272 (150-400) X10^3/uL Neut % (Auto) 68.8 (50-75) % Lymph % (Auto) 22.7 L (25-40) % [place] % (Auto) 7.4 (3-14) % Eos % (Auto) 0.7 L (2-4) % Baso % (Auto) 0.4 (0-2) % Neut # (Auto) 3900 (6643-7603) /uL Lymph # (Auto) 1300 (1068-6620) /uL [place] # (Auto) 400 (0-900) /uL Eos # (Auto) 0 (0-450) /uL Baso # (Auto) 0 (0-100) /uL Sodium (137-145) mmol/L Potassium (3.4-5.1) mmol/L Chloride (98-107) mmol/L Carbon Dioxide (22-32) mmol/L BUN (7-17) mg/dL Creatinine (0.52-1.04) mg/dL Estimated GFR (>60) mL/min BUN/Creatinine Ratio (6-22) Glucose (70-100) mg/dL Calcium (8.4-10.2) mg/dL Total Bilirubin (0.2-1.3) mg/dL AST (14-36) IU/L ALT (<35) IU/L Alkaline Phosphatase (38-126) U/L Total Protein (6.3-8.2) g/dL Albumin (3.5-5.0) g/dL Globulin (1.7-4.1) g/dL Albumin/Globulin Ratio (1.0-2.8) Lipase (23-300) U/L Urine RBC 5-10/hpf H (0-5/HPF) Urine WBC None seen (0-5/HPF) Ur Squamous Epith Cells 1-5 /hpf (0-5/HPF) Urine Bacteria None seen (None) Ur Culture Indicated? Cult not indicated Stl C. cayetanensis PCR (Not Detect) Stool Rotavirus (PCR) (Not Detect) Stool Adenovirus (PCR) (Not Detect) Stool Astrovirus (PCR) (Not Detect) Stool Cryptosporidium PCR (Not Detect) Stl E.coli Shiga Tox PCR (Not Detect) St Sh/Enteroin Ecoli PCR (Not Detect) Stool E coli O157 PCR Stl Enterotoxigenic E PCR (Not Detect) Stool EPEC (PCR) (Not Detect) Stl E. histolytica PCR (Not Detect) Stool Giardia Lamblia PCR (Not Detect) Stool Sapovirus (PCR) (Not Detect) Stl P. shigelloides PCR (Not Detect) St Y.enterocolitica PCR (Not Detect) Stool Vibrio (PCR) (Not Detect) Stl Vibrio cholerae PCR (Not Detect) Stl Enteroaggr Ecoli PCR (Not Detect) Stl Norovirus GI/GII PCR (Not Detect) Campylobacter (PCR) (Not Detect) C. difficile Tox (PCR) (Not Detect) SARS-CoV-2 (PCR) Negative (Negative) Salmonella (PCR) (Not Detect) 10/03/20 10/03/20 Range/Units 15:15 16:24 WBC (4.5-11.0) X10^3/uL RBC (4.0-5.2) X10^6/uL Hgb (12.0-16.0) g/dL Hct (36-46) % MCV (80-100) fL MCH (26-34) PG MCHC (30-36) % RDW (11.6-14.8) % Plt Count (150-400) X10^3/uL Neut % (Auto) (50-75) % Lymph % (Auto) (25-40) % [place] % (Auto) (3-14) % Eos % (Auto) (2-4) % Baso % (Auto) (0-2) % Neut # (Auto) (6661-5943) /uL Lymph # (Auto) (3069-5633) /uL [place] # (Auto) (0-900) /uL Eos # (Auto) (0-450) /uL Baso # (Auto) (0-100) /uL Sodium 136 L (137-145) mmol/L Potassium 3.9 (3.4-5.1) mmol/L Chloride 102 (98-107) mmol/L Carbon Dioxide 31 (22-32) mmol/L BUN 11 (7-17) mg/dL Creatinine 0.60 (0.52-1.04) mg/dL Estimated GFR > 60.0 (>60) mL/min BUN/Creatinine Ratio 18.3 (6-22) Glucose 95 (70-100) mg/dL Calcium 9.7 (8.4-10.2) mg/dL Total Bilirubin 1.5 H (0.2-1.3) mg/dL AST 26 (14-36) IU/L ALT 23 (<35) IU/L Alkaline Phosphatase 53 (38-126) U/L Total Protein 7.1 (6.3-8.2) g/dL Albumin 4.4 (3.5-5.0) g/dL Globulin 2.7 (1.7-4.1) g/dL Albumin/Globulin Ratio 1.6 (1.0-2.8) Lipase 153 (23-300) U/L Urine RBC (0-5/HPF) Urine WBC (0-5/HPF) Ur Squamous Epith Cells (0-5/HPF) Urine Bacteria (None) Ur Culture Indicated? Stl C. cayetanensis PCR Not detected (Not Detect) Stool Rotavirus (PCR) Not detected (Not Detect) Stool Adenovirus (PCR) Not detected (Not Detect) Stool Astrovirus (PCR) Not detected (Not Detect) Stool Cryptosporidium PCR Not detected (Not Detect) Stl E.coli Shiga Tox PCR Not detected (Not Detect) St Sh/Enteroin Ecoli PCR Not detected (Not Detect) Stool E coli O157 PCR Not Reportable Stl Enterotoxigenic E PCR Not detected (Not Detect) Stool EPEC (PCR) Not detected (Not Detect) Stl E. histolytica PCR Not detected (Not Detect) Stool Giardia Lamblia PCR Not detected (Not Detect) Stool Sapovirus (PCR) Not detected (Not Detect) Stl P. shigelloides PCR Not detected (Not Detect) St Y.enterocolitica PCR Not detected (Not Detect) Stool Vibrio (PCR) Not detected (Not Detect) Stl Vibrio cholerae PCR Not detected (Not Detect) Stl Enteroaggr Ecoli PCR Not detected (Not Detect) Stl Norovirus GI/GII PCR Not detected (Not Detect) Campylobacter (PCR) Not detected (Not Detect) C. difficile Tox (PCR) Not detected (Not Detect) SARS-CoV-2 (PCR) (Negative) Salmonella (PCR) Not detected (Not Detect) Point of care testing: Urine Dip Bedside Urine Glucose Negative Bedside Urine Bilirubin - Negative Bedside Urine Ketone +/- 5 Urine Specific [place] 1.025 Bedside Urine Occult Blood ++ Bedside Urine pH 6.0 Bedside Urine Protein - Negative Bedside Urine Urobilinogen - Negative Bedside Urine Nitrite - Negative Bedside Urine Leukocytes - Negative Esterase MDM Narrative Medical decision making narrative: 25-year-old woman with nausea vomiting and diarrhea and concern for Clostridium difficile with recent antibiotics. Wet mount suggests scattered yeast socially treated with a single dose of Diflucan in the emergency department. She is given fluids, Zofran, Protonix and a stool sample is requested to see if she in fact does have Clostridium difficile. She certainly does not have an acute abdomen nor appear toxic and is responded nicely to IV hydration. No recurrent vaginal discharge or dysuria at this time. Discharge Plan Departure Patient Disposition: Home Clinical Impression: Vomiting Qualifiers: Vomiting type: unspecified Vomiting Intractability: non-intractable Nausea presence: with nausea Qualified Code(s): R11.2 - Nausea with vomiting, unspecified Diarrhea Qualifiers: Diarrhea type: unspecified type Qualified Code(s): R19.7 - Diarrhea, unspecified Instructions: DI for Vomiting -- Adult Activity Restrictions/Additional Instructions: Thank you for coming in today Your swabs show that your bacterial vaginitis seems to have cleared. With the additional antibiotics it does look like you may be developing a yeast infection. You are given a single dose of yeast medicine in the emergency department that should be adequate treatment for this. You are given fluids and antiemetics in the emergency department. Prescriptions: New ondansetron 4 mg tablet,disintegrating 4 mg PO Q6H PRN (Reason: nausea and vomiting) Qty: 14 RF: 0 No Action cephalexin 500 MG capsule 500 mg PO Q6H Qty: 28 RF: 0 ondansetron 4 mg tablet,disintegrating 4 mg PO Q6H PRN (Reason: nausea and vomiting) Qty: 14 RF: 0 cyclobenzaprine 10 mg tablet 10 mg PO Q8H Qty: 15 RF: 0 Stand Alone Forms: Work Release Note
--- NOTE | 2020-10-03 14:49 | PC.NURSE ---
Patient to restroom to collect vaginal swab and stool sample.
[2020-10-03 14:53] LABS: Add Manual Diff / Slide Review NO; Basophils Absolute Auto 0 /uL (0-100); Basophils Percent Auto 0.4 % (0-2); Eosinophils Absolute Auto 0 /uL (0-450); Eosinophils Percent Auto 0.7 % (2-4); Hematocrit 44.4 % (36-46); Lymphocytes Absolute Auto 1300 /uL (1100-4500); Lymphocytes Percent Auto 22.7 % (25-40); Mean Corpuscular HGB Conc 33.8 % (30-36); Mean Corpuscular Hemoglobin 30.4 PG (26-34); Mean Corpuscular Volume 89.8 fL (80-100); Monocytes Absolute Auto 400 /uL (0-900); Monocytes Percent Auto 7.4 % (3-14); Neutrophils Absolute Auto 3900 /uL (1500-7000); Neutrophils Percent Auto 68.8 % (50-75); Platelet Count 272 X10^3/uL (150-400); Red Blood Cell Count 4.94 X10^6/uL (4.0-5.2); Red Cell Distribution Width 12.7 % (11.6-14.8); White Blood Cell Count 5.7 X10^3/uL (4.5-11.0)
[2020-10-03 14:53] LABS: Bacteria Urine None Seen; WBC Urine None Seen (0-5/HPF)
[2020-10-03 15:04] LABS: Culture Indicated Urine Cult Not Indicated; RBC Urine 5-10/HPF (0-5/HPF); Squamous Epithelial Cell Urine 1-5 /HPF (0-5/HPF)
[2020-10-03] MEDS: ONDANSETRON 4 MG/2 ML INJ IV (15:33)
[2020-10-03] MEDS: PANTOPRAZOLE 40 MG VIAL IV (15:34)
[2020-10-03] MEDS: FLUCONAZOLE 150 MG TABLET PO (15:34)
[2020-10-03] MEDS: SODIUM CHLORIDE 0.9% 1,000 ML 1000 ML IV (15:34)
[2020-10-03 15:42] LABS: Alanine Aminotransferase 23 IU/L (<35); Albumin 4.4 g/dL (3.5-5.0); Albumin Globulin Ratio 1.6 (1.0-2.8); Alkaline Phosphatase 53 U/L (38-126); Aspartate Aminotransferase 26 IU/L (14-36); BUN Creatinine Ratio 18.3 (6-22); Bilirubin Total 1.5 mg/dL (0.2-1.3); Blood Urea Nitrogen 11 mg/dL (7-17); Calcium 9.7 mg/dL (8.4-10.2); Carbon Dioxide 31 mmol/L (22-32); Chloride 102 mmol/L (98-107); Estimated Glomerular Filt Rate > 60.0 mL/min (>60); Globulin 2.7 g/dL (1.7-4.1); Glucose 95 mg/dL (70-100); HEMOLYSIS < 15 (0-50); Lipase 153 U/L (23-300); Potassium 3.9 mmol/L (3.4-5.1); Sodium 136 mmol/L (137-145); Total Protein 7.1 g/dL (6.3-8.2)
[2020-10-03 17:04] VITALS: BP 132/83; PULSE 55; RESP 16; O2SAT 100
[2020-10-03] MEDS: PROCHLORPERAZINE 10 MG/2 ML VIAL IV (17:16)
[2020-10-03 18:17] LABS: Adenovirus F 40/41 Not Detected (Not Detect); Astrovirus Not Detected (Not Detect); Campylobacter Not Detected (Not Detect); Clostridium difficile toxin AB Not Detected (Not Detect); Cryptosporidium Not Detected (Not Detect); Cyclospora cayetanensis Not Detected (Not Detect); Entamoeba histolytica Not Detected (Not Detect); Enteroaggregative E.coli Not Detected (Not Detect); Enteropathogenic E.coli Not Detected (Not Detect); Enterotoxigenic E.coli It/st Not Detected (Not Detect); Giardia lamblia Not Detected (Not Detect); Norovirus GI/GII Not Detected (Not Detect); Plesiomonsa shigelloides Not Detected (Not Detect); Rotavirus A Not Detected (Not Detect); Salmonella Not Detected (Not Detect); Sapovirus Not Detected (Not Detect); Shiga-like toxin-prod E.coli Not Detected (Not Detect); Shigella/Enteroinvasive E.coli Not Detected (Not Detect); Vibrio Not Detected (Not Detect); Vibrio cholerae Not Detected (Not Detect); Yersinia enterocolitica Not Detected (Not Detect)
[2020-10-03 18:28] VITALS: BP 123/80; PULSE 58; RESP 16; O2SAT 99
== END 2020-10-03 18:37 | disposition home or self-care (01) ==
PROVIDERS: Emergency Provider Emergency Medicine
DX: R11.2 Nausea with vomiting, unspecified (principal); R19.7 Diarrhea, unspecified; R50.9 Fever, unspecified; R10.9 Unspecified abdominal pain; Z20.822 Contact with and (suspected) exposure to COVID-19
CPT/HCPCS: 36415; 80053; 81003; 81015; 83690; 85025; 87210; 87507; 87635; 96361; 96374; 96375; 99282; 99284; C9803; C9113; J0780; J2405

== ENCOUNTER 2024-07-20 10:50 | Emergency (ER) | payer OTHER, MEDICAID, SELFPAY ==
[2024-07-20 11:02] VITALS: BP 128/82; PULSE 57; RESP 18; TEMP 36.4; O2SAT 100; BMI 27.4
--- NOTE | 2024-07-20 11:08 | DI.RAD.S_ITS ---
PROCEDURE: XR SHOULDER LT MIN 2V INDICATIONS: pain TECHNIQUE: 3 views of the shoulder were acquired. COMPARISON: None. FINDINGS: Bones: No acute fractures or dislocations. No suspicious bony lesions. Visualized ribs appear intact. Soft tissues: No suspicious soft tissue calcifications. IMPRESSION: No acute osseous abnormality. If there is continued clinical concern or persistent symptoms, repeat radiographs or cross-sectional imaging (e.g. CT, MRI) may be helpful for further evaluation. Approved by: Zaire Smiley M.D. on 07/20/2024 at 11:51
--- NOTE | 2024-07-20 11:41 | DI.RAD.S_ITS ---
PROCEDURE: XR CHEST 1V INDICATIONS: chest pain TECHNIQUE: One view of the chest was acquired. COMPARISON: [facility], CR, XR CHEST 1V, 03/11/2020, 19:55. FINDINGS: Surgical changes and devices: None. Lungs and pleura: Lungs are clear. No pleural effusions or pneumothorax. Mediastinum: Mediastinal contours appear normal. Heart size is normal. Bones and chest wall: No suspicious bony lesions. Overlying soft tissues appear unremarkable. IMPRESSION: No acute cardiopulmonary abnormality is seen. Approved by: Zaire Smiley M.D. on 07/20/2024 at 12:34
--- NOTE | 2024-07-20 11:51 | ED_ITS ---
HPI - Chest Pain <Syl Trejo PA-C - Last Filed: 07/20/24 13:22> General Chief Complaint: Extremity Injury, Upper Stated Complaint: left side pain shoulder down to the arm Time Seen by Provider: 07/20/24 11:30 Source: patient Mode of arrival: Ambulatory History of Present Illness HPI narrative: Ms. Goins is a pleasant 29-year-old female with a past medical history of fibromyalgia who presents to the emergency department for chest pain and left shoulder pain since yesterday evening around 6:00 p.m. Patient reports she noticed pain in her left posterior shoulder blade that did not resolve with ibuprofen last night. Reports that when she woke up this morning she noticed the pain had traveled to her chest, below her left breast, and spreading down her left arm. She denies ever experiencing chest pain in the past. Pain is constant. She denies any associated shortness of breath, leg swelling, orthopnea, nausea, vomiting, dysuria, fevers, chills, cough,or breast pain. She denies any history of cardiac disease or blood clots. Denies hemoptysis, bormone use, recent surgery. She notes that she was lifting clothing in her garage yesterday prior to the pain but denies any direct injury. She denies drug or ETOH use but does admit to vaping. Related Data On Oral Contraceptives: No Previous Rx's Medication Instructions Recorded cephalexin 500 mg capsule 500 mg PO Q6H #28 caps 12/03/17 cyclobenzaprine 10 mg tablet 10 mg PO Q8H back and muscle pain 11/12/18 #15 tabs ondansetron 4 mg disintegrating 4 mg PO Q6H PRN nausea and 03/11/20 tablet vomiting #14 tabs ondansetron 4 mg disintegrating 4 mg PO Q6H PRN nausea and 10/03/20 tablet vomiting #14 tabs Allergies Allergy/AdvReac Type Severity Reaction Status Date / Time No Known Drug Allergies Allergy Verified 07/20/24 11:02 Review of Systems <Syl Trejo PA-C - Last Filed: 07/20/24 13:22> Review of Systems Narrative: Pertinent ROS documented in the HPI. Patient History <Syl Trejo PA-C - Last Filed: 07/20/24 13:22> Medical History (Updated 07/20/24 @ 13:10 by Syl Trejo PA-C) No pertinent family history Healthy female Surgical History No pertinent past surgical history Social History Smoking Status: Current some day smoker Smoking Status: Current some day smoker tobacco type: vaping alcohol intake frequency: holidays/special occasions only Substance Use Type: marijuana Exam <Syl Trejo PA-C - Last Filed: 07/20/24 13:22> Narrative Exam Narrative: GENERAL: 29 year old patient appears stated age. Well-developed patient, in no acute distress. HEAD: Atraumatic. Normocephalic. EYES: Extraocular motions intact. No scleral icterus. No injection or drainage. ENT: Nose without bleeding, purulent drainage. Airway patent. NECK: Trachea midline. Non tender CARDIOVASCULAR: Sinus kenny and normal rhythm. Normal S1, S2. RESPIRATORY: Clear to auscultation. Breath sounds equal bilaterally. No wheezes, rales, or rhonchi. GASTROINTESTINAL: Tenderness to palpation overlying left ribcage below left breast. Abdomen soft, non-tender, nondistended. EXTREMITIES: No edema or joint tenderness BL upper and lower extremities. 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 BACK: Nontender without deformity or crepitance. No flank tenderness. NEURO: AOx3. SKIN: No rash or erythema of visible areas Initial Vital Signs Initial Vital Signs: Vital Signs Temperature 97.6 F 07/20/24 11:02 Pulse Rate 57 L 07/20/24 11:02 Respiratory Rate 18 07/20/24 11:02 Blood Pressure 128/82 07/20/24 11:02 Pulse Oximetry 100 07/20/24 11:02 Oxygen Delivery Method Room Air 07/20/24 11:02 <Mitzi Lacy DO - Last Filed: 07/21/24 09:54> Initial Vital Signs Initial Vital Signs: Vital Signs Temperature 97.6 F 07/20/24 11:02 Pulse Rate 57 L 07/20/24 11:02 Respiratory Rate 18 07/20/24 11:02 Blood Pressure 128/82 07/20/24 11:02 Pulse Oximetry 100 07/20/24 11:02 Oxygen Delivery Method Room Air 07/20/24 11:02 Scores <Syl Trejo PA-C - Last Filed: 07/20/24 13:22> HEART Score Heart Score history: Slightly Suspicious Heart Score EKG: Normal Heart Score Age: < 45 years old Heart Score risk factors: 1-2 risk factors Heart Score troponin: < or = to normal limit Heart Score Total: 1 PERC Score Age greater than or equal to 50 years: No Heart rate greater than or equal to 100 bpm: No Room Air O2 Sat less than 95%: No Unilateral leg swelling: No Recent trauma or surgery: No Hemoptysis: No Prior PE or DVT: No Hormone Use: No Total PERC Score: 0 <Mitzi Lacy DO - Last Filed: 07/21/24 09:54> HEART Score Heart Score Total: 1 PERC Score Total PERC Score: 0 Course <Syl Trejo PA-C - Last Filed: 07/20/24 13:22> Orders Ordered: Discontinued Medications Ketorolac Tromethamine (Ketorolac 30 Mg/Ml Vial) 15 mg IV NOW ONE Stop: 07/20/24 11:42 Last Admin: 07/20/24 12:03 Dose: 15 mg Documented By: SPF Vital Signs Vital signs: Vital Signs - 8 hr 07/20/24 11:02 Temperature 97.6 F Pulse Rate 57 L Respiratory Rate 18 Blood Pressure 128/82 Pulse Oximetry 100 Oxygen Delivery Method Room Air <Mitzi Lacy DO - Last Filed: 07/21/24 09:54> Orders Ordered: Discontinued Medications Ketorolac Tromethamine (Ketorolac 30 Mg/Ml Vial) 15 mg IV NOW ONE Stop: 07/20/24 11:42 Last Admin: 07/20/24 12:03 Dose: 15 mg Documented By: SPF Vital Signs Vital signs: Vital Signs - 8 hr 07/20/24 11:02 Temperature 97.6 F Pulse Rate 57 L Respiratory Rate 18 Blood Pressure 128/82 Pulse Oximetry 100 Oxygen Delivery Method Room Air MDM - Chest Pain <JOSE Oakley Last Filed: 07/20/24 13:22> Lab Data Attestation: I reviewed the patient's lab results. Lab results narrative: HCG negative. Labs reveal no leukocytosis. Normal renal function. Lipase within normal limits. Troponin 0.013. 07/20/24 11:53 07/20/24 11:53 Labs: Lab Results 07/20/24 Range/Units 11:53 WBC 4.5 (4.5-11.0) X10^3/uL RBC 4.91 (4.0-5.2) X10^6/uL Hgb 14.1 (12.0-16.0) g/dL Hct 42.1 (36-46) % MCV 85.8 (80-100) fL MCH 28.8 (26-34) PG MCHC 33.5 (30-36) % RDW 14.6 (11.6-14.8) % Plt Count 287 (150-400) X10^3/uL Neut % (Auto) 47.1 L (50-75) % Lymph % (Auto) 43.2 H (25-40) % [place] % (Auto) 7.7 (3-14) % Eos % (Auto) 1.3 L (2-4) % Baso % (Auto) 0.7 (0-2) % Neut # (Auto) 2100 (4266-3174) /uL Lymph # (Auto) 1900 (6201-9839) /uL [place] # (Auto) 300 (0-900) /uL Eos # (Auto) 100 (0-450) /uL Baso # (Auto) 0 (0-100) /uL Sodium 138 (137-145) mmol/L Potassium 4.6 (3.4-5.1) mmol/L Chloride 104 (98-107) mmol/L Carbon Dioxide 25 (22-32) mmol/L BUN 6 L (7-17) mg/dL Creatinine 0.76 (0.52-1.04) mg/dL Estimated GFR > 60 (>60) mL/min BUN/Creatinine Ratio 7.9 (6-22) Glucose 90 (70-100) mg/dL Calcium 9.6 (8.4-10.2) mg/dL Total Bilirubin 0.9 (0.2-1.3) mg/dL AST 31 (14-36) IU/L ALT 18 (<35) IU/L Alkaline Phosphatase 33 L (38-126) U/L Total Creatine Kinase 61 (30-135) U/L Troponin I 0.013 (0.01-0.034) ng/mL Total Protein 7.8 (6.3-8.2) g/dL Albumin 4.8 (3.5-5.0) g/dL Globulin 3.0 (1.7-4.1) g/dL Albumin/Globulin Ratio 1.6 (1.0-2.8) Lipase 79 (23-300) U/L Point of Care Testing Test Results Negative Urine Dip Bedside Urine Glucose Negative Bedside Urine Bilirubin - Negative Bedside Urine Ketone - Negative Urine Specific [place] 1.010 Bedside Urine Occult Blood - Negative Bedside Urine pH 7.5 Bedside Urine Protein - Negative Bedside Urine Urobilinogen - Negative Bedside Urine Nitrite - Negative Bedside Urine Leukocytes - Negative Esterase Imaging Data Chest x-ray: My Impression: On my independent interpretation of the chest x-ray, no large pneumothorax or infiltrate seen. Radiologist's Impression: IMPRESSION: No acute cardiopulmonary abnormality is seen. Left shoulder XR: My Impression: Agree with radiologist's interpretation., independent interpretation, no left shoulder fracture. Radiologist's Impression: IMPRESSION: No acute osseous abnormality. If there is continued clinical concern or persistent symptoms, repeat radiographs or cross-sectional imaging (e.g. CT, MRI) may be helpful for further evaluation. ECG Data Interpretation: ECG reviewed by attending physician. My independent interpretation is rate of 53 beats per minute, regular rhythm. MDM Narrative Medical decision making narrative: 29-year-old female with a past medical history of fibromyalgia who presents to the emergency department for chest pain and left shoulder pain since yesterday evening around 6:00 p.m. Differential diagnosis includes but is not limited to ACS/NV, PE, muscle strain, costochondritis, pneumonia, pancreatitis, cervical radiculopathy, etc.. On exam patient is in no acute distress, nontoxic- appearing, all vital signs within normal limits except for HR 57bpm. Patient does have tenderness to palpation of the left anterior ribcage (no trauma). Lungs clear to auscultation bilaterally. PERC negative. Will initiate cardiac workup including lipase however low suspicion for ACS. Will also obtain x-ray left shoulder. Treat pain with Toradol after negative hCG. Heart score 1. PERC negative. Troponin negative. Pain improved with Toradol. Pain reproducible upon palpation. Suspect musculoskeletal related chest pain. Advised rest, Tylenol and ibuprofen alternating, prompt follow up with PCP. I also discussed with patient her heart rate and EKG findings revealing sinus bradycardia. She is not dizzy, lightheaded or symptomatic but I did discuss the importance of PCP follow-up for further monitoring. Patient is very reassured, agreeable to plan and stable for discharge home. Strict ED return precautions discussed. <Mitzi Lacy, DO - Last Filed: 07/21/24 09:54> Lab Data Labs: Lab Results 07/20/24 Range/Units 11:53 WBC 4.5 (4.5-11.0) X10^3/uL RBC 4.91 (4.0-5.2) X10^6/uL Hgb 14.1 (12.0-16.0) g/dL Hct 42.1 (36-46) % MCV 85.8 (80-100) fL MCH 28.8 (26-34) PG MCHC 33.5 (30-36) % RDW 14.6 (11.6-14.8) % Plt Count 287 (150-400) X10^3/uL Neut % (Auto) 47.1 L (50-75) % Lymph % (Auto) 43.2 H (25-40) % [place] % (Auto) 7.7 (3-14) % Eos % (Auto) 1.3 L (2-4) % Baso % (Auto) 0.7 (0-2) % Neut # (Auto) 2100 (7250-8899) /uL Lymph # (Auto) 1900 (3483-5996) /uL [place] # (Auto) 300 (0-900) /uL Eos # (Auto) 100 (0-450) /uL Baso # (Auto) 0 (0-100) /uL Sodium 138 (137-145) mmol/L Potassium 4.6 (3.4-5.1) mmol/L Chloride 104 (98-107) mmol/L Carbon Dioxide 25 (22-32) mmol/L BUN 6 L (7-17) mg/dL Creatinine 0.76 (0.52-1.04) mg/dL Estimated GFR > 60 (>60) mL/min BUN/Creatinine Ratio 7.9 (6-22) Glucose 90 (70-100) mg/dL Calcium 9.6 (8.4-10.2) mg/dL Total Bilirubin 0.9 (0.2-1.3) mg/dL AST 31 (14-36) IU/L ALT 18 (<35) IU/L Alkaline Phosphatase 33 L (38-126) U/L Total Creatine Kinase 61 (30-135) U/L Troponin I 0.013 (0.01-0.034) ng/mL Total Protein 7.8 (6.3-8.2) g/dL Albumin 4.8 (3.5-5.0) g/dL Globulin 3.0 (1.7-4.1) g/dL Albumin/Globulin Ratio 1.6 (1.0-2.8) Lipase 79 (23-300) U/L Point of Care Testing Test Results Negative Urine Dip Bedside Urine Glucose Negative Bedside Urine Bilirubin - Negative Bedside Urine Ketone - Negative Urine Specific [place] 1.010 Bedside Urine Occult Blood - Negative Bedside Urine pH 7.5 Bedside Urine Protein - Negative Bedside Urine Urobilinogen - Negative Bedside Urine Nitrite - Negative Bedside Urine Leukocytes - Negative Esterase ECG Data Interpretation: ECG reviewed by attending physician. My independent interpretation is rate of 53 beats per minute, regular rhythm. Dr. Lacy normal sinus rhythm heart rate 53 DE interval 180 QRS [address] changes Discharge Plan Departure Patient Disposition: Home Clinical Impression: Chest wall pain, Bradycardia, sinus Instructions: DI for Atypical Chest Pain Activity Restrictions/Additional Instructions: Please rest, hydrate, take ibuprofen 600 mg every 6 hours alternating with Tylenol 1000 mg every 6 hours as needed for pain. Please call to schedule an appointment with a primary care doctor for repeat evaluation within the next week. Return to the emergency department immediately if you develop new or worsening chest pain, shortness of breath, or any other concerns. Prescriptions: No Action cephalexin 500 MG capsule 500 mg PO Q6H Qty: 28 0RF ondansetron 4 mg tablet,disintegrating 4 mg PO Q6H PRN (Reason: nausea and vomiting) Qty: 14 0RF cyclobenzaprine 10 mg tablet 10 mg PO Q8H Qty: 15 0RF Rx Instructions: 1/2-1 tab up to q8h prn. Do not drive ondansetron 4 mg tablet,disintegrating 4 mg PO Q6H PRN (Reason: nausea and vomiting) Qty: 14 0RF Stand Alone Forms: Patient Portal/API/Survey ED Sign-out <Mitzi Lacy DO - Last Filed: 07/21/24 09:54> Cosign ED Attending Cosignature Attestation: I was available for consultation.
[2024-07-20 12:01] LABS: Add Manual Diff / Slide Review NO; Basophils Absolute Auto 0 /uL (0-100); Basophils Percent Auto 0.7 % (0-2); Eosinophils Absolute Auto 100 /uL (0-450); Eosinophils Percent Auto 1.3 % (2-4); Hematocrit 42.1 % (36-46); Hemoglobin 14.1 g/dL (12.0-16.0); Lymphocytes Absolute Auto 1900 /uL (1100-4500); Lymphocytes Percent Auto 43.2 % (25-40); Mean Corpuscular HGB Conc 33.5 % (30-36); Mean Corpuscular Hemoglobin 28.8 PG (26-34); Mean Corpuscular Volume 85.8 fL (80-100); Monocytes Absolute Auto 300 /uL (0-900); Monocytes Percent Auto 7.7 % (3-14); Neutrophils Absolute Auto 2100 /uL (1500-7000); Neutrophils Percent Auto 47.1 % (50-75); Platelet Count 287 X10^3/uL (150-400); Red Blood Cell Count 4.91 X10^6/uL (4.0-5.2); Red Cell Distribution Width 14.6 % (11.6-14.8); White Blood Cell Count 4.5 X10^3/uL (4.5-11.0)
[2024-07-20] MEDS: KETOROLAC 30 MG/ML VIAL 15 MG IV (12:03)
--- NOTE | 2024-07-20 12:10 | PC.NURSE ---
Pt endorses being scared she is having a heart attack. Known history of heart murmur. Is not taking any cardiac medications. Yesterday evening at 1800 pt developed left shoulder pain. She expresses difficulty sleeping through the night and took ibuprofen which did not change her pain. Denies nausea. Endorses left arm numbness and left chest and neck pain.
[2024-07-20 12:11] LABS: Alanine Aminotransferase 18 IU/L (<35); Albumin 4.8 g/dL (3.5-5.0); Albumin Globulin Ratio 1.6 (1.0-2.8); Alkaline Phosphatase 33 U/L (38-126); Aspartate Aminotransferase 31 IU/L (14-36); BUN Creatinine Ratio 7.9 (6-22); Bilirubin Total 0.9 mg/dL (0.2-1.3); Blood Urea Nitrogen 6 mg/dL (7-17); Calcium 9.6 mg/dL (8.4-10.2); Carbon Dioxide 25 mmol/L (22-32); Chloride 104 mmol/L (98-107); Creatine Kinase 61 U/L (30-135); Estimated Glomerular Filt Rate > 60 mL/min (>60); Glucose 90 mg/dL (70-100); Lipase 79 U/L (23-300); Potassium 4.6 mmol/L (3.4-5.1); Sodium 138 mmol/L (137-145); Total Protein 7.8 g/dL (6.3-8.2)
--- NOTE | 2024-07-20 12:11 | EKG_ITS ---
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
[2024-07-20 12:12] LABS: HEMOLYSIS 75 (0-50)
[2024-07-20 12:23] LABS: Troponin I 0.013 ng/mL (0.01-0.034)
[2024-07-20 12:30] VITALS: PULSE 49; RESP 18
[2024-07-20 13:20] VITALS: BP 117/69; PULSE 48; RESP 18; O2SAT 97
== END 2024-07-20 13:22 | disposition home or self-care (01) ==
PROVIDERS: Emergency Provider Physician Assistant
DX: R07.89 Other chest pain (principal); R00.1 Bradycardia, unspecified
CPT/HCPCS: 36415; 71045; 73030; 80053; 81003; 81025; 82550; 83690; 84484; 85025; 93005; 96374; 99284; J1885